=== PATIENT | female | born 1985 | race Caucasian/White ===

== ENCOUNTER → 2021-12-13 11:23 | Outpatient (BNVA) | payer MEDICAID, SELFPAY | PROVIDERS: Family Provider Physician Assistant; PCP Physician Assistant; Visit Provider Nurse Practitioner Family | DX: Z13.6 Encounter for screening for cardiovascular disorders (principal) | CPT/HCPCS: 80053; 80061; 84443; 85025 ==

== ENCOUNTER 2022-01-22 06:00 | Outpatient (RCR) | payer MEDICAID, SELFPAY | END 2022-01-29 23:59 | disposition home or self-care (01) | LOC: GPT 06:00 | PROVIDERS: PCP Physician Assistant; Visit Provider Orthopaedic Surgery | DX: M46.1 Sacroiliitis, not elsewhere classified (principal); M54.50 Low back pain, unspecified; G89.29 Other chronic pain | CPT/HCPCS: 97110; 97112; 97140; 97161; 97535 ==

== ENCOUNTER 2022-01-30 06:00 | Outpatient (RCR) | payer MEDICAID, SELFPAY | END 2022-02-28 23:59 | disposition home or self-care (01) | LOC: GPT 06:00 | PROVIDERS: PCP Physician Assistant; Visit Provider Orthopaedic Surgery | DX: M46.1 Sacroiliitis, not elsewhere classified (principal); M54.50 Low back pain, unspecified; G89.29 Other chronic pain | CPT/HCPCS: 20561; 97110; 97112; 97140 ==

== ENCOUNTER 2022-03-01 06:00 | Outpatient (RCR) | payer SELFPAY | END 2022-03-31 23:59 | disposition home or self-care (01) | LOC: GPT 06:00 | PROVIDERS: PCP Physician Assistant; Visit Provider Orthopaedic Surgery | DX: M46.1 Sacroiliitis, not elsewhere classified (principal); M54.50 Low back pain, unspecified; M89.29 Other disorders of bone development and growth, multiple sites | CPT/HCPCS: 20560; 20561; 97110; 97140 ==

== ENCOUNTER → 2022-06-19 16:08 | Outpatient (BNVA) | payer OTHER, MEDICAID, SELFPAY | PROVIDERS: PCP Physician Assistant; Visit Provider Nurse Practitioner Family | DX: E55.9 Vitamin D deficiency, unspecified (principal); L65.9 Nonscarring hair loss, unspecified; M25.50 Pain in unspecified joint; M19.019 Primary osteoarthritis, unspecified shoulder; M25.60 Stiffness of unspecified joint, not elsewhere classified; Z68.30 Body mass index [BMI] 30.0-30.9, adult | CPT/HCPCS: 80053; 82306; 82652; 84443; 85651; 86140; 86160; 86162; 86200; 86235; 86255; 86376; 86431 ==

== ENCOUNTER → 2022-07-30 16:33 | Outpatient (BNVA) | payer OTHER, MEDICAID, SELFPAY | PROVIDERS: PCP Nurse Practitioner Family; Visit Provider Nurse Practitioner Family | DX: L65.0 Telogen effluvium (principal) | CPT/HCPCS: 82728; 83550; 84630 ==

== ENCOUNTER → 2022-08-04 16:30 | Outpatient (BNVA) | payer OTHER, MEDICAID, SELFPAY | PROVIDERS: PCP Nurse Practitioner Family; Visit Provider Nurse Practitioner Family | DX: L65.9 Nonscarring hair loss, unspecified (principal) | CPT/HCPCS: 84630 ==

== ENCOUNTER → 2022-11-24 10:24 | Outpatient (BNVA) | payer OTHER, MEDICAID, SELFPAY | PROVIDERS: PCP Nurse Practitioner Family; Visit Provider Nurse Practitioner Family | DX: L65.0 Telogen effluvium (principal) | CPT/HCPCS: 84630 ==

== ENCOUNTER → 2022-12-09 16:41 | Outpatient (BNVA) | payer OTHER, MEDICAID, SELFPAY | PROVIDERS: PCP Nurse Practitioner Family; Visit Provider Nurse Practitioner Family | DX: L65.0 Telogen effluvium (principal) | CPT/HCPCS: 82728 ==

== ENCOUNTER → 2023-03-26 09:56 | Outpatient (BNVA) | payer MEDICAID, SELFPAY | PROVIDERS: PCP Nurse Practitioner Family; Visit Provider Nurse Practitioner Family | DX: Z79.899 Other long term (current) drug therapy (principal); F90.9 Attention-deficit hyperactivity disorder, unspecified type | CPT/HCPCS: 82565; 84520 ==

== ENCOUNTER → 2023-09-29 14:28 | Outpatient (BNVA) | payer MEDICAID, SELFPAY | PROVIDERS: PCP Nurse Practitioner Family; Visit Provider Nurse Practitioner Family | DX: R68.82 Decreased libido (principal); R53.83 Other fatigue; E55.9 Vitamin D deficiency, unspecified; E53.8 Deficiency of other specified B group vitamins | CPT/HCPCS: 80053; 82306; 82607; 82672; 83001; 84144; 84402; 84403; 84443; 85025 ==

== ENCOUNTER 2023-10-12 06:00 | Outpatient (RCR) | payer MEDICAID, SELFPAY | END 2023-10-30 23:59 | disposition home or self-care (01) | LOC: GPT 06:00 | PROVIDERS: PCP Nurse Practitioner Family; Visit Provider Physician Assistant | DX: M75.52 Bursitis of left shoulder (principal); M79.672 Pain in left foot; M89.8X7 Other specified disorders of bone, ankle and foot; G89.29 Other chronic pain | CPT/HCPCS: 97110; 97162 ==

== ENCOUNTER → 2023-10-23 16:04 | Outpatient (BNVA) | payer MEDICAID, SELFPAY | PROVIDERS: PCP Nurse Practitioner Family; Visit Provider Nurse Practitioner Family | DX: J02.9 Acute pharyngitis, unspecified (principal) | CPT/HCPCS: 87070; 87880 ==

== ENCOUNTER 2023-10-31 06:00 | Outpatient (RCR) | payer MEDICAID, SELFPAY | END 2023-11-29 23:59 | disposition home or self-care (01) | LOC: GPT 06:00 | PROVIDERS: PCP Nurse Practitioner Family; Visit Provider Physician Assistant | DX: M75.52 Bursitis of left shoulder (principal); M79.672 Pain in left foot; G89.29 Other chronic pain | CPT/HCPCS: 97110; 97112; 97140; 97530 ==

== ENCOUNTER 2023-11-30 06:00 | Outpatient (RCR) | payer MEDICAID, SELFPAY | END 2023-12-30 23:59 | disposition home or self-care (01) | LOC: GPT 06:00 | PROVIDERS: PCP Nurse Practitioner Family; Visit Provider Physician Assistant | DX: M75.52 Bursitis of left shoulder (principal); M79.672 Pain in left foot; M89.8X7 Other specified disorders of bone, ankle and foot; G89.29 Other chronic pain | CPT/HCPCS: 97110; 97140; 97530 ==

== ENCOUNTER 2023-12-02 12:10 | Outpatient (CLI) | payer MEDICAID, SELFPAY ==
--- NOTE | 2023-12-02 12:21 | CTR_ITS ---
PROCEDURE INFORMATION: Exam: CT Left Lower Extremity Without Contrast, Foot Exam date and time: 12/02/2023 1:24 PM Age: 38 years old Clinical indication: Swelling, leg or foot; Prior surgery; Surgery date: 6+ months; Patient HX: --left foot bony [id number] may 22, SX on jun 24; Additional info: Bony prominence, PT having mri US too TECHNIQUE: Imaging protocol: CT of the left lower extremity without contrast was performed. Exam focused on the foot. Radiation optimization: All CT scans at this facility use at least one of these dose optimization techniques: automated exposure control; mA and/or kV adjustment per patient size (includes targeted exams where dose is matched to clinical indication); or iterative reconstruction. COMPARISON: No relevant prior studies available. RADIATION DOSE METRICS: Total DLP (mGy-cm): 136.66 FINDINGS: Bones/joints: No acute fracture, or periosteal reaction. Joint spaces are well-maintained. Ankle mortise joint appears intact. Fat attenuating density along the mid calcaneus which may represent an intra osseous lipoma. Soft tissues: No organized collections. No significant soft tissue edema. Intramuscular fat planes are well-maintained. No subcutaneous emphysema. CT/CT foot LT wo con* [id number] IMPRESSION: 1. No acute fracture, or periosteal reaction. 2. Fat attenuating density along the mid calcaneus which may represent an intraosseous lipoma.
--- NOTE | 2023-12-02 12:21 | USR_ITS ---
PROCEDURE INFORMATION: Exam: US Soft Tissue Head and Neck, Thyroid Exam date and time: 12/02/2023 1:01 PM Age: 38 years old Clinical indication: Mass, lump, or swelling in neck; Bilateral; Additional info: Localized swelling, neck, PT having MR CT too TECHNIQUE: Imaging protocol: Real-time ultrasound scan of the neck with image documentation. Exam focused on the thyroid. COMPARISON: MR shoulder LT wo con* [id number] 12/02/2023 12:27 PM FINDINGS: Right thyroid lobe: Right thyroid measures 1.4 x 1.8 x 4.9 centimeters. Left thyroid lobe: See Isthmus finding. Isthmus: The isthmus measures 0.2 centimeters. Left thyroid measures 1.2 x 1.3 x 4.7 centimeters. Lymph nodes: Left cervical chain oval-shaped hypoechoic 2.6 x 1.2 x 0.5 centimeters lymph node without any apparent normal fatty hilum. Other findings: No thyroid nodules. US/US thyroid [id number] IMPRESSION: Left cervical chain oval-shaped hypoechoic 2.6 x 1.2 x 0.5 centimeters lymph node without any apparent normal fatty hilum.
--- NOTE | 2023-12-02 12:26 | MR_ITS ---
WS: [id number] MRI LEFT SHOULDER NONCONTRAST TECHNIQUE: Sagittal T2, coronal T1, T2 and proton density imaging. Axial gradient PDE imaging. CLINICAL INFORMATION: SHOULDER COMPARISON: None. FINDINGS: Mild degenerative arthritis AC joint. Slight subacromial spurring. Slight impingement distal supraspi natus. Mild narrowing of the subacromial space. Trace subacromial and subdeltoid fluid. Normal supras pinatus. Normal infraspinatus. Normal teres minor. Subscapularis appears intact. Biceps tendon appear s intact within the bicipital groove. Normal visualized glenoid labrum. Normal biceps labral anchor. Normal bone marrow signal in the humeral head and glenoid. Normal visualized soft tissues. No other a cute findings. MR/MR shoulder LT wo con* [id number] IMPRESSION: 1. Mild degenerative arthritis AC joint with slight subacromial spurring and s light impingement of the distal supraspinatus. 2. Rotator cuff is intact. 3. Trace subacromial and subdeltoid fluid. 4. No other acute findings.
== END 2023-12-02 12:11 | disposition home or self-care (01) ==
LOC: RAD 12:10
PROVIDERS: PCP Nurse Practitioner Family; Visit Provider Orthopaedic Surgery
DX: M75.102 Unspecified rotator cuff tear or rupture of left shoulder, not specified as traumatic (principal); M13.812 Other specified arthritis, left shoulder; M77.8 Other enthesopathies, not elsewhere classified; R93.6 Abnormal findings on diagnostic imaging of limbs
CPT/HCPCS: 73221; 73700; 76536

== ENCOUNTER 2023-12-14 06:00 | Outpatient (RCR) | payer MEDICAID, SELFPAY | END 2023-12-30 23:59 | disposition home or self-care (01) | LOC: GPT 06:00 | PROVIDERS: Visit Provider Physician Assistant | DX: M79.672 Pain in left foot (principal); M89.8X7 Other specified disorders of bone, ankle and foot | CPT/HCPCS: 97112; 97161; 97530 ==

== ENCOUNTER 2023-12-31 06:00 | Outpatient (RCR) | payer MEDICAID, SELFPAY | END 2024-01-30 23:59 | disposition home or self-care (01) | LOC: GPT 06:00 | PROVIDERS: PCP Nurse Practitioner Family; Visit Provider Physician Assistant | DX: M79.672 Pain in left foot (principal); G89.29 Other chronic pain; M75.52 Bursitis of left shoulder | CPT/HCPCS: 97112; 97140; 97530 ==

== ENCOUNTER 2023-12-31 06:00 | Outpatient (RCR) | payer MEDICAID, SELFPAY | END 2024-01-30 23:59 | disposition home or self-care (01) | LOC: GPT 06:00 | PROVIDERS: PCP Nurse Practitioner Family; Visit Provider Physician Assistant | DX: M79.672 Pain in left foot (principal); M89.8X7 Other specified disorders of bone, ankle and foot | CPT/HCPCS: 97110; 97112; 97530 ==

== ENCOUNTER 2024-01-31 06:00 | Outpatient (RCR) | payer MEDICAID, SELFPAY | END 2024-02-10 23:59 | disposition home or self-care (01) | LOC: GPT 06:00 | PROVIDERS: PCP Nurse Practitioner Family; Visit Provider Internal Medicine Medical Oncology | DX: M75.52 Bursitis of left shoulder (principal); M89.8X7 Other specified disorders of bone, ankle and foot | CPT/HCPCS: 97140; 97530 ==

== ENCOUNTER 2024-04-19 11:57 | Outpatient (CLI) | payer MEDICAID, SELFPAY ==
--- NOTE | 2024-04-19 12:01 | MR_ITS ---
WS: [id number] MRI LUMBAR SPINE NONCONTRAST HISTORY: LUMBAR RADICULOPATHY, chronic low back pain. RIGHT lower extremity pain and tingling. COMPARISON: None available. TECHNIQUE: Sagittal and axial multisequence imaging is submitted. Normal lumbar alignment with no compression fractures or marrow edema. T12 hemangioma. Disc spaces and vertebral body heights are well-preserved. Conus terminates normally at L1-2 disc level. L1-L2: Normal. L2-L3: Small amount of fluid in the RIGHT facet joint. No stenosis or fracture. L3-L4: Mild bilateral facet joint arthritis. No stenosis or disc protrusions. L4-L5: Moderate bilateral ligamentum flavum and facet arthritis. Very minimal bilateral foraminal devonte rowing. Mild subarticular recess encroachment. L5-S1: Mild annular disc bulging with ligamentum flavum and facet arthritis. There is mild disc encro achment upon the subarticular recesses with only mild stenosis. Paravertebral soft tissues are normal. MR/MR lumbar spine wo con* [id number] IMPRESSION: 1. No high-grade central or foraminal stenosis. 2. Facet joint arthropathy from L2-3 to L5-S1, most significant at L4-5. 3. Mild bilateral foraminal stenosis at L4-5. Very mild disc encroachment upon the subarticular recesses. 4. Mild disc encroachment upon the subarticular recesses of L5-S1. Only mild s tenosis.
== END 2024-04-19 11:58 | disposition home or self-care (01) ==
LOC: RAD 11:58
PROVIDERS: PCP Nurse Practitioner Family; Visit Provider Orthopaedic Surgery
DX: M54.16 Radiculopathy, lumbar region (principal); M47.896 Other spondylosis, lumbar region; M47.898 Other spondylosis, sacral and sacrococcygeal region
CPT/HCPCS: 72148